=== PATIENT | female | born 1975 | race Caucasian/White ===

== ENCOUNTER → 2017-06-09 | Outpatient (CLI) | payer BC ==
--- NOTE | ~2017-06-09 | MY29 ---
[facility] A Service of [facility] RADIOLOGY TEXT RESULTS PATIENT: KIARRA GUZMAN LOCATION: [facility] : 77 UNIT #: [id number] AGE: [address]: Coral Meadows MD SEX: F ORDER DR: [id number] [facility] [address] [place], [place] [address] [id number] O MR#: [id number] Acc #: [id number] NAME: KIARRA GUZMAN : 1975 SEX: F STUDY DATE/TIME: 06/09/2017 12:53 UNIT: [facility] ROOM: STUDY DESCRIPTION: MY EMERALD SCREENING W/ CAD BILAT Attending Physician: Coral Meadows M.D. Ordering Physician: Coral Meadows M.D. Primary Care Physician: Coral Meadows M.D. MEDICAL IMAGING REPORT This report is preliminary unless electronic signature is present EXAM Digital screening mammogram 06/09/2017 [facility]. HISTORY 42-year-old woman. Positive family history, aunt. Annual screen. COMPARISON Mammograms 10/30/2014, 04/15/2016. FINDINGS Digital imaging of each breast was completed utilizing screening protocol. Review includes FDA-approved CAD device. Breast parenchyma is heterogeneous with fibroglandular opacities again noted bilaterally. There is parenchymal dominance projecting upper outer quadrants of each breast. In the left breast, there is the interval occurrence of a small nodule projecting in the upper middle third location. This measures approximately 1.5 cm, though visualized on the MLO view, is not identified on the craniocaudal projection and is possibly omitted from the image. For appropriate characterization, additional left breast imaging is necessary. This would include a true lateral projection, exaggerated craniocaudal projection, high-resolution spot compression views and targeted left breast ultrasound. I see no microcalcifications and no architectural distortion. Right breast appears negative and stable. IMPRESSION Incomplete mammographic examination. Additional left breast imaging is recommended. See complete report with specific recommendations. Patients over the age of 40 are entered into a reminder system with target due date for the next mammogram. BIRADS: 0 Incomplete, needs additional imaging evaluate and/or prior mammograms for comparison. Additional left breast imaging recommended. [facility] A Service of [facility] RADIOLOGY TEXT RESULTS PATIENT: KIARRA GUZMAN LOCATION: [facility] #: [id number] : [birth year] UNIT #: [id number] AGE: [address]: Coral Meadows MD SEX: F ORDER DR: STAT * RESULT Dictated by... Rodegr Hall M.D. THIS IS AN ELECTRONICALLY VERIFIED REPORT Rodger Hall M.D. at 06/09/2017 1:34 PM Joselyn TD: 06/09/2017 13:07 JOB #: [id number] MEDICAL IMAGING REPORT Page 1 of 1 COPY
== END | disposition home or self-care (01) ==
LOC: CWCC 12:22
DX: Z12.31 Encounter for screening mammogram for malignant neoplasm of breast (principal); Z80.3 Family history of malignant neoplasm of breast; R92.8 Other abnormal and inconclusive findings on diagnostic imaging of breast
CPT/HCPCS: G0202

== ENCOUNTER → 2017-06-15 | Outpatient (CLI) | payer BC ==
--- NOTE | ~2017-06-15 | MY24 ---
[facility] A Service of [facility] RADIOLOGY TEXT RESULTS PATIENT: KIARRA GUZMAN LOCATION: [facility] : 77 UNIT #: [id number] AGE: [address]: Coral Meadows MD SEX: F ORDER DR: [id number] [facility] [address] [place], [place] [address] [id number] O MR#: [id number] Acc #: [id number] NAME: KIARRA GUZMAN : 1975 SEX: F STUDY DATE/TIME: 06/15/2017 9:23 UNIT: [facility] ROOM: STUDY DESCRIPTION: [facility] W/ CAD UNI LT Attending Physician: Coral Meadows M.D. Ordering Physician: Coral Meadows M.D. Primary Care Physician: Coral Meadows M.D. MEDICAL IMAGING REPORT This report is preliminary unless electronic signature is present EXAM Left breast diagnostic mammogram. INDICATIONS Asymmetric new density suggested in the left upper outer quadrant on recent screening mammogram. COMPARISON 06/09/2017, 04/15/2016, 10/30/2014. TECHNIQUE Today's study includes a spot compression in the ML projection, straight mediolateral view, exaggerated lateral CC view, and spot compression in the CC projection. They were all done with 2-D technique and reviewed with an FDA-approved CAD. FINDINGS On spot compression MLO view, there is still a suggestion of a 12-mm focal density in the upper breast. The ML view shows an island of glandular tissue in the upper lateral left breast that appears unchanged from the prior 2 MLO views dating back to 2013, and the CC views do not show any change from older studies, and the spot compression view does not show any focal lesion. Ultrasound of the upper outer quadrant was performed and is negative. I evaluated the patient myself, as well as having the technologist evaluate her. IMPRESSION Additional mammogram views and ultrasound strongly suggest that the suggestion of a mass-like area on the MLO projection of the recent screening mammogram is due to the rotation of the breast and summation artifact. I would suggest a 6-month followup left breast mammogram to document that there is no developing lesion. This has been discussed with the patient. [facility] A Service of [facility] RADIOLOGY TEXT RESULTS PATIENT: KIARRA GUZMAN LOCATION: [facility] : 77 UNIT #: [id number] AGE: [address]: Coral Meadows MD SEX: F ORDER DR: Patients over the age of 40 are entered into a reminder system with target due date for the next mammogram. A result letter will also be sent to the patient. BIRADS: 3 Probably benign finding; short interval followup suggested. Dictated by... Juan A Torres M.D. THIS IS AN ELECTRONICALLY VERIFIED REPORT Juan A Torres M.D. at 06/15/2017 1:01 PM Dallin TD: 06/15/2017 12:23 JOB #: [id number] MEDICAL IMAGING REPORT Page 1 of 1 COPY
--- NOTE | ~2017-06-15 | US24 ---
[facility] A Service [facility] RADIOLOGY TEXT RESULTS PATIENT: KIARRA GUZMAN LOCATION: [facility] : 77 UNIT #: [id number] AGE: [address]: Coral Meadows MD SEX: F ORDER DR: [id number] [id number] [place], [place] [address] [id number] O MR#: [id number] Acc #: [id number] NAME: KIARRA GUZMAN : 1975 SEX: F STUDY DATE/TIME: 06/15/2017 9:53 UNIT: [facility] ROOM: STUDY DESCRIPTION: US Breast Unilateral Attending Physician: Coral Meadows M.D. Ordering Physician: Coral Meadows M.D. Primary Care Physician: Coral Meadows M.D. MEDICAL IMAGING REPORT This report is preliminary unless electronic signature is present EXAM Left breast ultrasound INDICATIONS Possible developing density in the left upper outer quadrant. FINDINGS Ultrasound of the left breast from 3 o'clock to 1 o'clock was performed and was negative. IMPRESSION Negative targeted left breast ultrasound. Please see the mammogram report. Six-month followup left mammogram is recommended. Patients over the age of 40 are entered into a reminder system with target due date for the next mammogram. A result letter will also be sent to the patient. BIRADS: 3 Probably Benign Finding; Short Interval Followup Suggested Dictated by... Juan A Torres M.D. THIS IS AN ELECTRONICALLY VERIFIED REPORT Juan A Torres M.D. at 06/21/2017 1:37 PM FEL/psc TD: 06/21/2017 01:35 JOB #: [id number] [facility] A Service [facility] RADIOLOGY TEXT RESULTS PATIENT: KIARRA GUZMAN LOCATION: [facility] : 77 UNIT #: [id number] AGE: [address]: Coral Meadows MD SEX: F ORDER DR: MEDICAL IMAGING REPORT Page 1 of 1 COPY
== END | disposition home or self-care (01) ==
LOC: CMAM 08:56
DX: R92.8 Other abnormal and inconclusive findings on diagnostic imaging of breast (principal)
CPT/HCPCS: 76641; G0206